=== PATIENT | male | born 1995 | race Caucasian/White ===

== ENCOUNTER 2019-09-27 20:32 | Emergency (ER) | payer BC, MEDICAID ==
[~2019-09-27] VITALS: Ht 180.3 cm; Wt 78.1 kg
[2019-09-27] MEDS ORDERED: IBUP-1984 PO (21:42)
[2019-09-27] MEDS ORDERED: CYCL-1 PO (21:42)
[2019-09-27] MEDS ORDERED: orphenadrine citrate 60mg/2ml inj. IM ONE (21:45)
[2019-09-27 22:24] VITALS: BP 140/89
== END 2019-09-27 22:26 | disposition home or self-care (01) ==
LOC: ER 20:33
DX: S39.012A Strain of muscle, fascia and tendon of lower back, initial encounter (principal); G89.29 Other chronic pain; Z91.040 Latex allergy status; Z79.899 Other long term (current) drug therapy; X50.1XXA Overexertion from prolonged static or awkward postures, initial encounter; Y93.89 Activity, other specified; Y92.89 Other specified places as the place of occurrence of the external cause; Y99.8 Other external cause status
CPT/HCPCS: 96372; 99283; J2360